=== PATIENT | male | born 1980 | race Two or more races ===

== ENCOUNTER 2019-02-05 02:01 | Emergency (ER) | payer OTHER ==
[~2019-02-05] VITALS: Ht 149.9 cm; Wt 71.2 kg
[2019-02-05 03:07] VITALS: BP 116/66
== END 2019-02-05 02:55 | disposition left against medical advice (07) ==
LOC: ER 02:33
DX: S00.31XA Abrasion of nose, initial encounter (principal); R20.0 Anesthesia of skin; X58.XXXA Exposure to other specified factors, initial encounter; Y93.89 Activity, other specified; Y92.89 Other specified places as the place of occurrence of the external cause; Y99.8 Other external cause status; Z87.891 Personal history of nicotine dependence; Z98.890 Other specified postprocedural states
CPT/HCPCS: 99281

== ENCOUNTER 2019-02-12 00:54 | Emergency (ER) | payer OTHER ==
[~2019-02-12] VITALS: Ht 149.9 cm; Wt 69.0 kg
[2019-02-12] MEDS ORDERED: IBUPROFEN 600MG TABLET PO ONE (02:15)
[2019-02-12 02:52] VITALS: BP 128/84
== END 2019-02-12 02:57 | disposition home or self-care (01) ==
LOC: ER 00:54
DX: J32.9 Chronic sinusitis, unspecified (principal); K02.9 Dental caries, unspecified; Z98.890 Other specified postprocedural states
CPT/HCPCS: 99283

== ENCOUNTER 2019-08-13 01:00 | Emergency (ER) | payer OTHER ==
[~2019-08-13] VITALS: Ht 149.9 cm; Wt 69.0 kg
[2019-08-13 07:05] VITALS: BP 124/58
[2019-08-13] MEDS ORDERED: POLYETHYLENE GLYCOL 3350 (17GM) 1 DOSE PACK PO ONE (11:00)
[2019-08-13 12:14] LABS: BASOPHILS % 0.7 % (0.0-2.0); EOSINOPHILS % 7.3 % (0.0-5.0); HEMATOCRIT. 45.8 % (42.0-52.0); HEMOGLOBIN. 16.3 g/dL (14.0-18.0); LYMPHOCYTES % 49.7 % (20.0-50.0); MEAN CORPUSCULAR HEMOGLOBIN 31.5 pg (28.0-32.0); MEAN CORPUSCULAR VOLUME 88.6 fL (80.0-94.0); MEAN PLATELET VOLUME 8.4 fl (7.4-10.4); MONOCYTES % 9.4 % (2.0-8.0); NEUTROPHILS % 32.9 % (40.0-76.0); PLATELET 301 x1000/uL (130-400); RED BLOOD CELL COUNT 5.16 mill/uL (4.7-6.1); RED CELL DISTRIBUTION WIDTH 13.1 % (11.6-14.6)
[2019-08-13 12:23] LABS: CHLORIDE 108 mEq/L (98-107)
[2019-08-13 12:49] LABS: CLARITY URINE CLEAR (CLEAR); COLOR URINE YELLOW (YELLOW); KETONES URINE TRACE (NEGATIVE); LEUKOCYTE ESTERASE URINE NEGATIVE (NEGATIVE); NITRITE URINE NEGATIVE (NEGATIVE); OCCULT BLOOD URINE NEGATIVE (NEGATIVE); PH URINE 5.5 (4.5-8.0); PROTEIN URINE NEGATIVE (NEGATIVE); SPECIFIC GRAVITY URINE 1.033 (1.005-1.030)
== END 2019-08-13 15:38 | disposition left against medical advice (07) ==
LOC: ER 01:00
DX: R10.9 Unspecified abdominal pain (principal); K59.00 Constipation, unspecified; Z53.21 Procedure and treatment not carried out due to patient leaving prior to being seen by health care provider
CPT/HCPCS: 36415; 80053; 81003; 83690; 85025; Z7610

== ENCOUNTER 2019-08-14 00:54 | Emergency (ER) | payer OTHER ==
[~2019-08-14] VITALS: Ht 149.9 cm; Wt 69.0 kg
[2019-08-14 02:36] VITALS: BP 121/71
== END 2019-08-14 02:42 | disposition home or self-care (01) ==
LOC: ER 00:54
DX: Z00.00 Encounter for general adult medical examination without abnormal findings (principal); K21.9 Gastro-esophageal reflux disease without esophagitis; R10.9 Unspecified abdominal pain
CPT/HCPCS: 99282

== ENCOUNTER 2023-09-20 16:01 | Emergency (ER) | payer MEDICAID, OTHER ==
[~2023-09-20] VITALS: Ht 180.3 cm; Wt 72.6 kg
[2023-09-20 16:16] VITALS: O2SAT 98
[2023-09-20 16:55] VITALS: BP 107/75; PULSE 92; RESP 16; TEMP 98.4
== END 2023-09-20 16:55 | disposition home or self-care (01) ==
LOC: ER 16:01
DX: M35.00 Sjogren syndrome, unspecified (principal)
CPT/HCPCS: 99281